=== PATIENT | female | born 2000 | race African-American/Black ===

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

== ENCOUNTER 2022-10-10 18:53 | Emergency (ER) | payer OTHER ==
[2022-10-10 19:17] VITALS: BP 104/77; PULSE 88; RESP 16; TEMP 98; BMI 18.2
[2022-10-10] MEDS ORDERED: IBUPROFEN 400 MG TABLET (FP) PO ONE ×2 (19:17→19:18)
== END 2022-10-10 19:25 | disposition home or self-care (01) ==
LOC: FER 18:53
DX: S16.1XXA Strain of muscle, fascia and tendon at neck level, initial encounter (principal); V49.40XA Driver injured in collision with unspecified motor vehicles in traffic accident, initial encounter
CPT/HCPCS: 99283-25